=== PATIENT | female | born 1985 | race Asian ===

== ENCOUNTER 2019-08-18 16:25 | Emergency (ER) | payer OTHER ==
--- NOTE | 2019-08-18 17:37 | ED Physician Documentation ---
PD HPI UPPER EXT INJURY - Stated complaint Stated Complaint: RT HAND LAC - Chief complaint Chief Complaint: Laceration - History obtained from History obtained from: Patient - History of Present Illness Location: Right, Hand (base of right thumb on ulnar side just prox to MCP joint.) Type of injury: Laceration (cut with broken glass when doing dishes (did not know glass was broken and cut thumb base when reached into the dish water in the sink).) Where injury occurred: Home Timing - onset: Today Timing - details: Abrupt onset, Still present Worsened by: Moving, Palpating Associated symptoms: No: Weakness, Numbness Similar symptoms before: Has not had sx before Review of Systems Neurologic: denies: Focal weakness, Numbness, Near syncope PD PAST MEDICAL HISTORY - Past Medical History Past Medical History: No - Allergies Allergies/Adverse Reactions: Allergies Allergy/AdvReac Type Severity Reaction Status Date / Time No Known Drug Allergies Allergy Verified 08/18/19 16:33 - Living Situation Living Situation: reports: With spouse/s.o. Living Arrangement: reports: At home - Family History Family history: reports: Non contributory PD ED PE NORMAL - Vitals Vital signs reviewed: Yes - General General: Alert and oriented X 3, No acute distress, Well developed/nourished - Derm Derm: Normal color, Warm and dry - Extremities Extremities: Other (right thumb base just prox to MCP on ulnar side dorsally with 3 cm laceration to subcut tissue. No FB seen nor felt. Good ROM of the thumb and normal sensation, color and cap refill ) - Neuro Neuro: Alert and oriented X 3, No motor deficit, No sensory deficit Results - Vitals Vitals: Vital Signs - 24 hr 08/18/19 08/18/19 16:33 18:13 Temperature 36.8 C Heart Rate 66 65 Respiratory 14 16 Rate Blood Pressure 121/78 120/76 O2 Saturation 100 100 Oxygen O2 Source Room air Procedures - Laceration (location) right thumb base Length in cm: 3 Wound type: Linear, Into subcut fat, Clean. No: Into muscle Neurovascular status: Sensory intact, Motor intact, Vascular intact Tendon involvement: Tendon intact Anesthesia: Lidocaine 1% with epi Wound Preparation: Wound explored, To the base. No: FB identified, Wound edges modified Skin layer closure: Nylon, Running, Size #-0 - enter number (4), Sutures - enter # (12) Other: Patient tolerated well, No complications, Neurovascular intact, Dressing applied, Tetanus UTD PD MEDICAL DECISION MAKING - ED course Complexity details: considered differential (laceration to subcut tissue and no deep structures, no FB seen nor felt. ), d/w patient Departure - Departure Disposition: 01 Home, Self Care Clinical Impression: Laceration of right thumb Qualifiers: Encounter type: initial encounter Damage to nail status: without damage Foreign body presence: without foreign body Qualified Code(s): S61.011A - Laceration without foreign body of right thumb without damage to nail, initial encounter Condition: Stable Record reviewed to determine appropriate education?: Yes Instructions: ED Laceration Hand Follow-Up: VIVIAN Cee [Provider Group] Comments: It is okay to wash and shower. Clean off the wound twice a day with soap and water, or peroxide and water. Apply some antibiotic ointment to it to keep it moist. Also to watch for signs of infection such as purulence, redness or increasing pain. Return to your primary care or the ER at the specified time for suture removal. Suture removal 9 or 10 days. Tylenol or ibuprofen if needed for pains. Easy use of the thumb and hand the first 2 to 3 days and then progressed to normal activity based on comfort. Discharge Date/Time: 08/18/19 18:13
[2019-08-18] MEDS ORDERED: IBUPROFEN 600 MG TABLET PO STA (18:06)
[2019-08-18 18:14] VITALS: BP 120/76
== END 2019-08-18 18:13 | disposition home or self-care (01) ==
LOC: ED 16:25
DX: S61.011A Laceration without foreign body of right thumb without damage to nail, initial encounter (principal); W25.XXXA Contact with sharp glass, initial encounter; Y93.G1 Activity, food preparation and clean up; Y92.009 Unspecified place in unspecified non-institutional (private) residence as the place of occurrence of the external cause
CPT/HCPCS: 12002; 99282; A9270